=== PATIENT | female | born 1980 | race Caucasian/White ===

== ENCOUNTER 2017-01-05 08:31 | Inpatient (IN) | payer OTHER ==
[~2017-01-05] VITALS: Ht 157.5 cm; Wt 70.5 kg
[2017-01-05 08:26] VITALS: BP 125/58; PULSE 66; RESP 18
[2017-01-05] MEDS ORDERED: LACTATED RINGER'S 1,000 ML IV SCH ×2 (08:34→09:08)
[2017-01-05] MEDS ORDERED: BUTORPHANOL 2 MG INJ IV PRN (09:00)
[2017-01-05] MEDS ORDERED: MISOPROSTOL 200 MCG TAB PR PRN ×3 (09:00→13:30)
[2017-01-05] MEDS ORDERED: AMPICILLIN 2 GM/NS (PMX) 100 ML IV ONE (09:00)
[2017-01-05] MEDS ORDERED: CARBOPROST 250 MCG INJ IM PRN ×3 (09:00→13:30)
[2017-01-05] MEDS ORDERED: OXYTOCIN 30 UNITS/LR 500 ML IV PRN ×3 (09:00→13:30)
[2017-01-05] MEDS ORDERED: OXYTOCIN 30 UNITS/LR 500 ML IV SCH ×4 (09:00→09:30)
[2017-01-05] MEDS ORDERED: METHYLERGONOVINE 0.2 MG INJ IM PRN ×3 (09:00→13:30)
[2017-01-05] MEDS ORDERED: LACTATED RINGER'S 1,000 ML IV PRN (09:00)
[2017-01-05] MEDS ORDERED: LIDOCAINE 1% (MPF) 30 ML INJ INJ PRN (09:00)
--- NOTE | 2017-01-05 09:10 | HP ---
Date/Time of Note Date/Time of Note DATE: 01/05/17 TIME: 09:08 OB - History Hx of Present Free Text/Dictation multipara@38+wks GA in Active labor Care: Good Care Ultrasounds: Normal mid trimester US Obstetrical Complications: None Medical Complications: None Past Family/Social History * Past Medical, Surgical, Family and Obstetric Histories reviewed from chart. OB Admission Exam Vital Signs Vital Signs Vital Signs Date Time Temp Pulse Resp B/P Pulse Ox O2 Delivery O2 Flow Rate FiO2 01/05/17 08:26 98.0 66 18 125/58 Room Air Physical Exam Abdomen: WNL Extremities: Normal Cervical Dilatation: 10cm Effacement: 100% Station: -1 Membranes: Intact Heart Rate: 140's Accelerations: Accelerations Present Decelerations: No Decelerations Varibility: Moderate Contractions on Admission: < 5 Minutes Apart OB Assessment/Plan Reason for admission: observation Plan: Expectant Management KALA MONCADA M.D. Jan 05, 2017 09:09
--- NOTE | 2017-01-05 09:11 | LDN ---
Date/Time of Note Date/Time of Note DATE: 01/05/17 TIME: 09:10 Delivery Summary 38+ Placenta Delivered: Spontaneously Meconium: none, Thick Episiotomy: No Anesthesia type: None Estimated blood loss: 200 Sponge & Needle done & correct: Yes All needle counts correct: Yes Any foreign bodies felt in the: No Problems: Delivery Information Apgars 1 Minute: 9 5 Minute: 9 Suctioning Nose & mouth suctioned at david: Yes Delee suction performed: Yes Umbilical Cord Umbilical cord with: 3 Vessels Cord presentations: no nuchal cord Cord Blood was obtained: Yes Mother & Baby Disposition Disposition Mom & Baby to Maternity; Good: Yes Baby to NICU: No KALA MONCADA M.D. Jan 05, 2017 09:11
[2017-01-05 09:26] LABS: BASOPHILS % 0.2 % (0.0-2.0); EOSINOPHILS # 0.1 10^3/ul (0.0-0.5); EOSINOPHILS % 0.4 % (0.0-7.0); HEMATOCRIT 38.2 % (37.0-47.0); HEMOGLOBIN 13.2 g/dl (12.0-16.0); LYMPHOCYTES # 3.1 10^3/ul (0.8-2.9); LYMPHOCYTES % 20.2 % (15.0-51.0); MEAN CORPUSCULAR HEMOGLOBIN 29.3 pg (29.0-33.0); MEAN CORPUSCULAR HGB CONC 34.6 g/dl (32.0-37.0); MEAN CORPUSCULAR VOLUME 84.9 fl (82.0-101.0); MEAN PLATELET VOLUME 12.5 fl (7.4-10.4); MONOCYTE # 0.7 10^3/ul (0.3-0.9); MONOCYTES % 4.8 % (0.0-11.0); NEUTROPHILS % 73.8 % (39.0-77.0); PLATELET COUNT 208 10^3/UL (140-415); RED CELL DISTRIBUTION WIDTH 13.4 % (11.5-14.5); WHITE BLOOD COUNT 15.3 10^3/ul (4.8-10.8)
[2017-01-05] MEDS ORDERED: IBUPROFEN 600 MG TAB PO PRN (09:30)
[2017-01-05 09:44] LABS: INR 0.88; PROTIME 11.9 Sec (12.2-14.2); PT RATIO 0.9
[2017-01-05 09:45] LABS: PARTIAL THROMBOPLASTIN TIME 25.2 Sec (25.0-35.0)
[2017-01-05] MEDS ORDERED: SENNA/DOCUSATE NA (8.6MG/50MG) TAB PO PRN (13:30)
[2017-01-05] MEDS ORDERED: ZOLPIDEM 5 MG TAB PO PRN (13:30)
[2017-01-05] MEDS ORDERED: OXYCODONE/ASPIRIN (4.88/325) TAB PO PRN (13:30)
[2017-01-05] MEDS ORDERED: LANOLIN 7 GM TUBE TOP PRN (13:30)
[2017-01-05] MEDS ORDERED: BENZOCAINE 20% 56 ML SPRAY TOP PRN (13:30)
[2017-01-05] MEDS ORDERED: WITCH HAZEL/GLYCERIN PAD PR PRN (13:30)
[2017-01-05] MEDS: IBUPROFEN 600 MG TAB PO SCH (19:30)
[2017-01-05] MEDS: LACTATED RINGER'S 1,000 ML IV* SCH ×2 (19:30→21:16)
[2017-01-05 20:00] VITALS: BP 114/69; PULSE 69; RESP 18
[2017-01-05] MEDS: SENNA/DOCUSATE NA (8.6MG/50MG) TAB PO SCH (21:16)
[2017-01-06] MEDS: IBUPROFEN 600 MG TAB PO SCH ×4 (00:21→19:02)
[2017-01-06 04:00] VITALS: BP 99/52; PULSE 68; RESP 17
[2017-01-06] MEDS: LACTATED RINGER'S 1,000 ML IV* SCH ×2 (05:16→13:16)
[2017-01-06 07:45] VITALS: BP 100/54; PULSE 75; RESP 18
[2017-01-06 10:18] LABS: BASOPHILS % 0.3 % (0.0-2.0); EOSINOPHILS # 0.1 10^3/ul (0.0-0.5); EOSINOPHILS % 1.1 % (0.0-7.0); HEMATOCRIT 31.3 % (37.0-47.0); HEMOGLOBIN 10.4 g/dl (12.0-16.0); LYMPHOCYTES # 2.2 10^3/ul (0.8-2.9); LYMPHOCYTES % 22.4 % (15.0-51.0); MEAN CORPUSCULAR HEMOGLOBIN 28.7 pg (29.0-33.0); MEAN CORPUSCULAR HGB CONC 33.2 g/dl (32.0-37.0); MEAN CORPUSCULAR VOLUME 86.2 fl (82.0-101.0); MEAN PLATELET VOLUME 12.4 fl (7.4-10.4); MONOCYTE # 0.6 10^3/ul (0.3-0.9); NEUTROPHILS % 69.8 % (39.0-77.0); PLATELET COUNT 157 10^3/UL (140-415); RED BLOOD COUNT 3.63 10^6/ul (4.20-5.40); RED CELL DISTRIBUTION WIDTH 13.3 % (11.5-14.5); WHITE BLOOD COUNT 9.7 10^3/ul (4.8-10.8)
--- NOTE | 2017-01-06 10:41 | QN ---
Documentation Comment Progress Note PPD #1 Pt is doing well and is w/o complaints. Lochia minimal. well. T=98.1 MARY 99/52 Fundus firm. Lochia minimal. Ext NT, no edema. CBC pending. P: D/C tomorrow. LUIS ENRIQUE VILCHIS MD Jan 06, 2017 10:41
[2017-01-06] MEDS: SENNA/DOCUSATE NA (8.6MG/50MG) TAB PO SCH ×2 (10:45→21:21)
[2017-01-06 15:50] VITALS: BP 100/72; PULSE 86; RESP 18
[2017-01-06 19:50] VITALS: BP 113/67; PULSE 76; RESP 18
[2017-01-07] MEDS: IBUPROFEN 600 MG TAB PO SCH ×3 (00:13→12:09)
[2017-01-07 04:15] VITALS: BP 101/58; PULSE 70; RESP 18
[2017-01-07 08:15] VITALS: BP 105/59; PULSE 63; RESP 17
[2017-01-07] MEDS ORDERED: DIPHTH/TET/ACEL PERTUSS (ADULT) 0.5 ML VIAL IM* ONE (09:00)
[2017-01-07] MEDS: SENNA/DOCUSATE NA (8.6MG/50MG) TAB PO SCH (09:29)
--- NOTE | 2017-01-07 11:20 | QN ---
Documentation Comment PPD#2is stable afebrile No Vb +BM +voids Vs Stable Gen NAD Abd soft NT ND Genitalia No blood at perinium --->discharge Home KALA MONCADA M.D. Jan 07, 2017 11:20
--- NOTE | 2017-01-07 11:23 | DS ---
Date/Time of Note Date/Time of Note DATE: 01/07/17 TIME: 11:22 Discharge Summary Admission/Discharge Info Admit Date/Time Jan 05, 2017 at 08:32 Discharge Date/Time Discharge Diagnosis Patient Condition: Good Procedures vaginal delivery Hospital Course uneventful Primary Care Provider Not On Staff Doctor KALA MONCADA M.D. Jan 07, 2017 11:23
== END 2017-01-07 17:41 | disposition home or self-care (01) | DRG 775 ==
LOC: OBT 08:31 → L-D 08:32 → PP1 20:11
PROVIDERS: ADMIT Obstetrics & Gynecology; ATTEND Obstetrics & Gynecology
PROC: 10E0XZZ Delivery of Products of Conception, External Approach (ICD-10-PCS; principal; 2017-01-05)
PROC: 3C1ZX8Z Irrigation of Indwelling Device using Irrigating Substance, External Approach (ICD-10-PCS; 2017-01-05)
DX: O80 Encounter for full-term uncomplicated delivery (principal); Z37.0 Single live birth; Z3A.38 38 weeks gestation of pregnancy
CPT/HCPCS: 85025; 85610; 85730; 86592; 86900; 86901; 90715; 99464; G0463; J7120